=== PATIENT | female | born 1940 | race Caucasian/White ===

== ENCOUNTER → 2017-10-15 | Outpatient (CLI) | payer MEDICARE, OTHER ==
--- NOTE | 2017-10-15 13:20 | RAD ---
DATE: 10/15/2017 EXAM: MAMMO PRABHJOT SCREENING BILATERAL HISTORY: Screening Mammogram COMPARISON: This study was interpreted with the benefit of Computerized Aided Detection (CAD). The breast parenchyma shows scattered fibroglandular densities. Breast parenchyma level B. FINDINGS: Bilateral digital 2-D and 3-D tomosynthesis CC and MLO views. There is a stable upper outer left breast intramammary lymph node. No suspicious mass, calcification or architectural distortion. No significant change from prior examination IMPRESSION: No mammographic evidence of malignancy. Recommend routine screening mammogram in 12 months. BI-RADS CATEGORY: 1 NEGATIVE RECOMMENDED FOLLOW-UP: 12M 12 MONTH FOLLOW-UP PQRS compliance statement: Patient information was entered into a reminder system with a target due date for the next mammogram. Mammography is a sensitive method for finding small breast cancers, but it does not detect them all and is not a substitute for careful clinical examination. A negative mammogram does not negate a clinically suspicious finding and should not result in delay in biopsying a clinically suspicious abnormality. "Our facility is accredited by the [employer] Mammography Program."
== END | disposition home or self-care (01) ==
LOC: MAMMO 10:53
PROVIDERS: ATTEND Family Medicine
DX: Z12.31 Encounter for screening mammogram for malignant neoplasm of breast (principal)
CPT/HCPCS: 77063; 77067

== ENCOUNTER → 2018-11-12 | Outpatient (CLI) | payer MEDICARE, OTHER ==
[~2018-11-12] MED LIST: HEPARIN PF 500 UNIT/5 ML DISP.SYRIN. IV ONE
--- NOTE | 2018-11-12 12:33 | NUR ---
Accessed pt's port with good flush and blood return, assisted pt and er tech with bubble study, deaccessed pt's port and flushed with heparin flush per pt's written orders.
--- NOTE | 2018-11-12 13:07 | CARD ---
MR#: [id number] Date of Study: 11/12/2018 Ordering Physician: GARRETT RIVAS, Referring Physician: GARRETT RIVAS, Tech: Julia Mcleod NIKI APPROVED REPORT EXAM: Two-dimensional and M-mode echocardiogram with Doppler and color Doppler. Other Information Quality : Excellent INDICATION CVA/TIA Echo Enhancing Agent Agent/Amount Used: Agitated Svwmen23qU 2D DIMENSIONS Left Atrium(2D)2.7 (1.6-4.0cm)IVSd1.1 (0.7-1.1cm) Aortic Root(2D)3.1 (2.0-3.7cm)LVDd4.4 (3.9-5.9cm) LVOT Diameter2.0 (1.8-2.4cm)PWd1.0 (0.7-1.1cm) LVDs2.7 (2.5-4.0cm)FS (%) 38.7 % SV62.4 mlLVEF(%)60.0 (>50%) Aortic Valve AoV Peak Zhou.153.2cm/sAoV VTI22.2cm AO Peak GR.9.4mmHgAO Mean GR.5mmHg AI P 1/2 Qjur679gg Mitral Valve MV E Mqsdhhwp00.8cm/sMV DECEL DGHB40mx MV A Hwvbzqlb685.4cm/sE/A Ratio0.5 Tricuspid Valve TR P. Xgojiyeo904so/sRAP RBZAVMAQ9ytEg TR Peak Gr.38peSnYFXO98knYx Pulmonary Vein S1 Eykopelv736.0cm/sD2 Ylbfodun58.8cm/s LEFT VENTRICLE The left ventricle is normal size. There is normal left ventricular wall thickness. The left ventricu lar systolic function is normal. The Ejection Fraction is 60-65%. There is normal LV segmental wall m otion. RIGHT VENTRICLE The right ventricle is normal size. The right ventricular systolic function is normal. ATRIA The left atrium size is normal. The right atrium size is normal. The interatrial septum is intact wit h no evidence for an atrial septal defect or patent foramen ovale as noted on 2-D or Doppler imaging. Injection of bubbles documented an interatrial shunt. AORTIC VALVE The aortic valve is calcified but opens well. Doppler and Color Flow revealed moderate aortic regurgi tation. There is no significant aortic valvular stenosis. MITRAL VALVE The mitral valve is calcified but opens well. There is no evidence of mitral valve prolapse. There is no mitral valve stenosis. Doppler and Color Flow revealed no mitral valve regurgitation noted. TRICUSPID VALVE The tricuspid valve is normal in structure and function. Doppler and Color Flow revealed trace to mil d tricuspid regurgitation. There is mild pulmonary hypertension. The PA pressure was estimated at 38 mmHg. There is no tricuspid valve stenosis. PULMONIC VALVE The pulmonic valve is not well visualized. Doppler and Color Flow revealed mild pulmonic valvular reg urgitation. There is no pulmonic valvular stenosis. GREAT VESSELS The aortic root is normal in size. The ascending aorta is mildly dilated at 3.4 cm. The IVC is normal in size and collapses >50% with inspiration. PERICARDIAL EFFUSION There is no evidence of significant pericardial effusion. Critical Notification Critical Value: No <Conclusion> The left ventricular systolic function is normal. The Ejection Fraction is 60-65%. There is normal LV segmental wall motion. Moderate aortic regurgitation. Trace to mild tricuspid regurgitation. The PA pressure was estimated at 38 mmHg. There is no evidence of significant pericardial effusion. Signed by : Troy Dewitt, Electronically Approved : 11/12/2018 13:06:42
== END | disposition home or self-care (01) ==
LOC: ECHO 10:51
PROVIDERS: ATTEND Family Medicine
DX: I08.8 Other rheumatic multiple valve diseases (principal); I27.20 Pulmonary hypertension, unspecified
CPT/HCPCS: 93306; 96374; 96523

== ENCOUNTER → 2019-03-11 | Outpatient (CLI) | payer MEDICARE, OTHER ==
--- NOTE | 2019-03-12 10:19 | RAD ---
DATE: 03/11/2019 EXAM: MAMMO PRABHJOT SCREENING BILATERAL HISTORY: Routine screening COMPARISON: 10/15/2017 This study was interpreted with the benefit of Computerized Aided Detection (CAD). Breast Density: SCATTERED The breast parenchyma shows scattered fibroglandular densities. Breast parenchyma level B. FINDINGS: 2-D and 3-D tomosynthesis imaging was performed in CC and MLO projections. There is an unchanged small lobulated nodule in the lateral aspect of left breast compatible with an intramammary lymph node. No new or enlarging breast densities are seen. Benign type calcifications are present. No suspicious microcalcifications have developed. IMPRESSION: Stable mammograms without evidence of malignancy. BI-RADS CATEGORY: 2 BENIGN FINDING(S) RECOMMENDED FOLLOW-UP: 12M 12 MONTH FOLLOW-UP PQRS compliance statement: Patient information was entered into a reminder system with a target due date for the next mammogram. Mammography is a sensitive method for finding small breast cancers, but it does not detect them all and is not a substitute for careful clinical examination. A negative mammogram does not negate a clinically suspicious finding and should not result in delay in biopsying a clinically suspicious abnormality. "Our facility is accredited by the [employer] Mammography Program."
== END | disposition home or self-care (01) ==
LOC: MAMMO 13:08
PROVIDERS: ATTEND Family Medicine
DX: Z12.31 Encounter for screening mammogram for malignant neoplasm of breast (principal); N63.20 Unspecified lump in the left breast, unspecified quadrant; N64.89 Other specified disorders of breast
CPT/HCPCS: 77063; 77067

== ENCOUNTER → 2020-03-16 | Outpatient (CLI) | payer MEDICARE, OTHER ==
--- NOTE | 2020-03-17 12:29 | RAD ---
DATE: 03/16/2020 11:25 AM EXAM: MAMMO PRABHJOT SCREENING BILATERAL HISTORY: Screening COMPARISON: 03/11/2019, 10/15/2017 Bilateral CC and MLO views of the breasts were performed. Bilateral breast tomosynthesis was performed in CC and MLO projections. This study was interpreted with the benefit of Computerized Aided Detection (CAD). FINDINGS: Breast Density: SCATTERED The breast parenchyma shows scattered fibroglandular densities. Breast parenchyma level B No suspicious masses, microcalcifications or architectural distortion is present to suggest malignancy in either breast. The visualized axillae are unremarkable. IMPRESSION: No mammographic evidence of malignancy. BI-RADS CATEGORY: 1 NEGATIVE RECOMMENDED FOLLOW-UP: 12M 12 MONTH FOLLOW-UP Annual screening mammography is recommended, unless clinically indicated sooner based on symptoms or change in physical exam. PQRS compliance statement: Patient information was entered into a reminder system with a target due date 03/17/2021 for the next mammogram. Mammography is a sensitive method for finding small breast cancers, but it does not detect them all and is not a substitute for careful clinical examination. A negative mammogram does not negate a clinically suspicious finding and should not result in delay in biopsying a clinically suspicious abnormality. "Our facility is accredited by the [employer] Mammography [employer]."
== END | disposition home or self-care (01) ==
LOC: MAMMO 11:07
PROVIDERS: ATTEND Family Medicine
DX: Z12.31 Encounter for screening mammogram for malignant neoplasm of breast (principal)
CPT/HCPCS: 77063; 77067

== ENCOUNTER 2020-07-21 10:02 | Emergency (ER) | payer MEDICARE, OTHER ==
[~2020-07-21] VITALS: Ht 157.5 cm; Wt 49.2 kg
[2020-07-21 10:21] VITALS: BP 135/83
--- NOTE | 2020-07-21 10:29 | PHYS DOC ---
Past History Past Medical History: Other (Small cell lung cancer) Past Surgical History: Other (Left lower lobe lobectomy) Adult General Chief Complaint Chief Complaint: SHORTNESS OF BREATH HPI HPI Patient is a 79-year-old female who presents for pneumonia. Patient has History of stage IV small cell lung cancer with left lower lobe lobectomy August 2018. She is well covered in outpatient setting by her primary care physician and multiple pressure riveter operator who are at [facility]. Patient reports seeing multiple pressure riveter operator this past Sunday, 2 days ago, and was clinically diagnosed with pneumonia and given amoxicillin. She reports being on day 2 of therapy. Denies any fever, chills, headache, chest pain, worsening shortness of breath past baseline but does admit having several episodes of hypoxia with O2 saturations dipping into the upper 80s past 48 hours. She has home oxygen at home which he uses as needed, states she only uses it at night only Review of Systems Review of Systems Fourteen body systems of review of systems have been reviewed. See HPI for pertinent positives and negative responses, other cifuentes all other systems are negative, non-pertinent or non-contributory Allergies Allergies Allergies Coded Allergies Type Severity Reaction Last Updated Verified No Known Drug Allergies 07/21/20 No Physical Exam Physical Exam Constitutional: Well developed, well nourished, no acute distress, non-toxic appearance. HENT: Normocephalic, atraumatic, bilateral external ears normal, oropharynx moist, no oral exudates, nose normal. Eyes: PERRLA, EOMI, conjunctiva normal, no discharge. Neck: Normal range of motion, no tenderness, supple, no stridor. Cardiovascular: Heart rate regular, sinus rhythm, no murmurs rubs or gallops Lungs & Thorax: No respiratory distress, no accessory muscle usage, poor lung sounds globally, diminished lung sounds in left lower lobe consistent with prior lobectomy, rhonchi present bilaterally worse in left upper lobe area Abdomen: Bowel sounds normal, soft, no tenderness, no masses, no pulsatile masses. Nonsurgical abdomen, no peritoneal signs Skin: Warm, dry, no erythema, no rash. Back: No tenderness, no CVA tenderness. Extremities: No tenderness, no cyanosis, no clubbing, ROM intact, no edema. Neurologic: Alert and oriented X 3, grossly normal motor & sensory function, no focal deficits noted. Psychologic: Affect normal, judgement normal, mood normal. Current Patient Data Vital Signs Vital Signs Date Time Temp Pulse Resp B/P (MAP) Pulse Ox O2 Delivery O2 Flow Rate FiO2 07/21/20 10:21 98.8 103 20 135/83 (100) 95 Room Air EKG EKG EKG ordered and interpreted by myself at 1109 hrs. as sinus rhythm at 91 bpm, unremarkable intervals, no axis deviation, suspect Q waves present in inferior leads indicating prior inferior IA, no ischemic findings, no STEMI Radiology/Procedures Radiology/Procedures PROCEDURE: CHEST PA & LATERAL EXAM: CHEST PA LATERAL INDICATION: Reason: HX LUNG CANCER, RECENT SHOB / Spl. Instructions: / History: . TECHNIQUE: PA and lateral views COMPARISON: None FINDINGS: Tunneled right chest port with tip terminating in the proximal to mid SVC. The heart size is normal. Great vessels show aortic calcification and tortuosity. No hilar or mediastinal mass is apparent although the left hilum is obscured by volume loss and consolidation in the left upper lobe. Lungs are hyperlucent and hyperinflated in a pattern consistent with underlying COPD. There is wedge-shaped consolidation in the posterior left upper lobe extending to the left hilum. There is no pleural effusion or pneumothorax. Bones show levoscoliosis of the thoracic spine and generalized osteopenia. IMPRESSION: COPD with wedge-shaped consolidation in the posterior left upper lobe. Correlate for pneumonia. Post treatment changes for lung cancer can appear similar. Electronically signed by: Nieves Hardy MD (07/21/2020 11:09 AM) [id number] Heart Score HEART Score for Chest Pain: HEART Score for Chest Pain Response (Comments) Value History Slighlty/Non-Suspicious 0 ECG Normal 0 Age > 65 2 Risk Factors 1 or 2 Risk Factors 1 Total 3 Risk Factors: Risk Factors: DM, Current or recent (<one month) smoker, HTN, HLP, family histo ry of CAD, obesity. Risk Scores: Risk Factors: DM, Current or recent (<one month) smoker, HTN, HLP, family history of CAD, obesity. Course & Med Decision Making Course & Med Decision Making Pertinent Labs and Imaging studies reviewed. (See chart for details) Discussed most likely diagnosis of left upper lobe pneumonia in high risk patient. I discussed utility of further diagnostic work-up involving laboratory analysis; however, given that patient is hemodynamically stable and relatively asymptomatic she deferred. I feel this is appropriate given that she has good access to outpatient follow-up and is knowledgeable on return precautions that should prompt immediate medical attention. I discussed with patient's importance of continued antibiotic therapy until completion. I did advise patient to be seen within upcoming 48 hours by primary care physician and/or multiple pressure riveter operator to ensure continued symptomatic improvement. I advised her since she has oxygen at home to use when needed to keep O2 saturations in the range of 90 to 95% given her extensive history of lung cancer etc. Strict return precautions were discussed with good understanding by patient, all questions and concerns addressed prior to ER departure in stable condition Dragon Disclaimer Dragon Disclaimer This electronic medical record was generated, in whole or in part, using a voice recognition dictation system. Departure Departure: Impression: Primary Impression: Left upper lobe pneumonia Disposition: DC HOME SELF CARE/HOMELESS Condition: STABLE Referrals: GARRETT RIVAS (PCP) Patient Instructions: Pneumonia, Adult Additional Instructions: As discussed prior to ER departure, please call your primary care physician first thing after discharge to discuss need for outpatient follow-up in upcoming 7 days In addition to previously prescribed antibiotics and supplemental use of home oxygen, please continue good supportive care and pulmonary hygiene to improve your chances of best possible outcome of fighting this pneumonia If any concerning signs or symptoms occur prior to outpatient follow-up such as fever, worsening shortness of breath, or inability to maintain oxygen saturation greater than 90% with home O2, please don't hesitate to come back for repeat evaluation It was a pleasure to take care of you and I wish you a speedy recovery! SORIN GRANT DO Jul 21, 2020 10:29
--- NOTE | 2020-07-21 11:12 | EKG ---
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
--- NOTE | 2020-07-21 11:12 | RAD ---
EXAM: CHEST PA LATERAL INDICATION: Reason: HX LUNG CANCER, RECENT SHOB / Spl. Instructions: / History: . TECHNIQUE: PA and lateral views COMPARISON: None FINDINGS: Tunneled right chest port with tip terminating in the proximal to mid SVC. The heart size is normal. Great vessels show aortic calcification and tortuosity. No hilar or mediastinal mass is apparent although the left hilum is obscured by volume loss and consolidation in the left upper lobe. Lungs are hyperlucent and hyperinflated in a pattern consistent with underlying COPD. There is wedge-shaped consolidation in the posterior left upper lobe extending to the left hilum. There is no pleural effusion or pneumothorax. Bones show levoscoliosis of the thoracic spine and generalized osteopenia. IMPRESSION: COPD with wedge-shaped consolidation in the posterior left upper lobe. Correlate for pneumonia. Post treatment changes for lung cancer can appear similar. Electronically signed by: Nieves Hardy MD (07/21/2020 11:09 AM) [id number]
== END 2020-07-21 11:55 | disposition home or self-care (01) ==
LOC: ER 10:02
DX: J18.1 Lobar pneumonia, unspecified organism (principal)
CPT/HCPCS: 71046; 93005; 99283; 99284

== ENCOUNTER 2020-07-30 09:59 | Emergency (ER) | payer OTHER, MEDICARE ==
[~2020-07-30] VITALS: Ht 157.5 cm; Wt 49.0 kg
[2020-07-30 09:59] VITALS: BP 134/72
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
[2020-07-30 10:44] LABS: BASO % 0 % (0-3); EOS # 0.2 x10^3/uL (0.0-0.7); EOS % 2 % (0-3); HEMATOCRIT 32.9 % (36.0-47.0); HEMOGLOBIN 10.6 g/dL (12.0-15.5); LYMPH # 1.3 x10^3/uL (1.0-4.8); LYMPH % 11 % (24-48); MEAN CORPUSCULAR HEMOGLOBIN 30 pg (25-35); MEAN CORPUSCULAR HGB CONC 32 g/dL (31-37); MEAN CORPUSCULAR VOLUME 94 fL (79-100); MONO # 0.9 x10^3/uL (0.0-1.1); MONO % 8 % (0-9); NEUT % 80 % (31-73); PLATELET COUNT 282 x10^3/uL (140-400); RED BLOOD COUNT 3.51 x10^6/uL (3.50-5.40); RED CELL DISTRIBUTION WIDTH 13.2 % (11.5-14.5); WHITE BLOOD COUNT 12.6 x10^3/uL (4.0-11.0)
[2020-07-30 10:56] LABS: CALCIUM 10.4 mg/dL (8.5-10.1); CREATININE 1.2 mg/dL (0.6-1.0); GFR 43.6; POTASSIUM 3.6 mmol/L (3.5-5.1)
[2020-07-30 11:01] LABS: ALBUMIN 3.4 g/dL (3.4-5.0); ALBUMIN/GLOBULIN RATIO 1.3 (1.0-1.7); TOTAL BILIRUBIN 0.4 mg/dL (0.2-1.0); TOTAL PROTEIN 6.1 g/dL (6.4-8.2)
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
--- NOTE | 2020-07-30 11:47 | EKG ---
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
[2020-07-30] MEDS ORDERED: HYDR-3165 PO (12:43)
[2020-07-30] MEDS ORDERED: HYDROcodone/APAP 5/325MG 1 TAB TABLET PO ONE (13:15)
[2020-07-30] MEDS ORDERED: HEPARIN PF 500 UNIT/5 ML DISP.SYRIN. IVP ONE (13:15)
== END 2020-07-30 13:25 | disposition home or self-care (01) ==
LOC: ER 09:59
DX: I63.9 Cerebral infarction, unspecified (principal); R07.89 Other chest pain; I10 Essential (primary) hypertension; I25.2 Old myocardial infarction; Z85.9 Personal history of malignant neoplasm, unspecified; Z98.890 Other specified postprocedural states
CPT/HCPCS: 36415; 70450; 71045; 72125; 80053; 84484; 85025; 93005; 96374; 99285

== ENCOUNTER → 2021-03-25 | Outpatient (CLI) | payer MEDICARE, OTHER ==
[~2021-03-25] MED LIST changes: -HEPARIN PF 500 UNIT/5 ML DISP.SYRIN. IV ONE; +HYDR-3165 PO
--- NOTE | 2021-03-25 12:46 | RAD ---
EXAM: Bilateral digital screening mammogram with tomosynthesis. HISTORY: 80-year-old female presents for screening mammography. TECHNIQUE: Full-field digital craniocaudal and mediolateral oblique 2D and 3D tomosynthesis images of both breasts are obtained for evaluation. Computer aided detection was applied. COMPARISON: 03/16/2020 BREAST PARENCHYMAL DENSITY: Level B - Scattered fibroglandular densities. FINDINGS: There is no new suspicious mass, microcalcification or region of architectural distortion. There is a stable benign nodular density within the 1:00 position of the left breast at anterior to m id depth. There are benign calcifications within both breasts. IMPRESSION: BI-RADS Category 2: Benign finding(s). RECOMMENDATION: Annual mammography is recommended. If your mammogram demonstrates that you have dense breast tissue, which could hide abnormalities, and if you have other risk factors for breast cancer that have been identified, you might benefit from s upplemental screening tests that may be suggested by your ordering physician. Dense breast tissue, i n and of itself, is a relatively common condition. This information is not provided to cause undue c oncern, but rather to raise your awareness and to promote discussion with your physician regarding th e presence of other risk factors, in addition to dense breast tissue. A report of your mammography re sults will be sent to you and your physician. You should contact your physician if you have any ques tions or concerns regarding this report. Mammography is a sensitive method for finding small breast cancers, but it does not detect them all a nd is not a substitute for careful clinical examination. A negative mammogram does not negate a clin ically suspicious finding and should not result in delay in biopsying a clinically suspicious abnorma lity. PQRS compliance statement - Patient information was entered into a reminder system with a target due date for the next mammogram. "Our facility is accredited by the [employer] Mammography Program." Electronically signed by: Genesis Villa MD (03/25/2021 12:44 PM) [id number]
== END ==
LOC: MAMMO 11:11
PROVIDERS: ATTEND Family Medicine
DX: Z12.31 Encounter for screening mammogram for malignant neoplasm of breast (principal)
CPT/HCPCS: 77067

== ENCOUNTER → 2021-11-18 | Outpatient (CLI) | payer MEDICARE, OTHER ==
--- NOTE | 2021-11-18 15:55 | RAD ---
XR CHEST 2V 11/18/2021 Reason: COUGH Comparison: Two-view chest radiograph 07/13/2020 Technique: PA and lateral radiographs of the chest Findings: Right chest wall infusion port catheter over the SVC. Redemonstration of masslike consolidation with volume loss in the left perihilar region, some of which are likely post operative in nature. There ar e changes of emphysema. Similar calcification of the aorta. Stable cardiac silhouette. No definite fo trudi airspace opacity. No pleural effusion or pneumothorax. There is increased calcific density in the anterior chest wall, possibly the sternum. Diffuse osseous demineralization. Impression: 1. No definite acute airspace disease. 2. Perihilar masslike consolidation and postsurgical changes should be follow-up by cross-sectional i maging. 3. Increased osseous abnormality in the anterior chest wall, possibly the sternum. Attention on follo w-up cross-sectional imaging. Electronically signed by: Wagner Pittman (11/18/2021 3:53 PM) [id number]
== END ==
LOC: RAD 12:52
PROVIDERS: ATTEND Family Medicine
DX: J43.9 Emphysema, unspecified (principal); R05.9 Cough, unspecified; R06.2 Wheezing
CPT/HCPCS: 71046

== ENCOUNTER 2021-11-22 20:54 | Emergency (ER) | payer MEDICARE, OTHER ==
[~2021-11-22] VITALS: Ht 157.5 cm; Wt 49.0 kg
--- NOTE | 2021-11-22 21:14 | PHYS DOC ---
Past History Past Medical History: Cancer, Hypertension, Stroke, Other (CANDE HUERTAS APRN) Past Surgical History: Other Additional Past Surgical Histo: Lung lobectomy (CANDE HUERTAS APRN) Alcohol Use: None (CANDE HUERTAS APRN) General Adult HPI: HPI: Patient is a 81-year-old female who presents to the emergency department for altered mental status. Per EMS, PD was called for a welfare check and patient was found lying on the floor. Patient does live alone. EMS reports that a neighbor of the patient showed up and reports that she is not acting normally. Unknown last well. Per EMS patient does not have any known family. After reviewing patient's medications it was found she has a history of high cholesterol, anxiety. Patient was recently placed on prednisone, cough medication and an antibiotic on November [address] Amaya. Patient is alert but not oriented, she is not following commands. (CANDE HUERTAS APRN) Review of Systems: Review of Systems: Review of systems limited due to patient's mental status (CANDE HUERTAS APRN) Allergies: Allergies: Allergies Coded Allergies Type Severity Reaction Last Updated Verified No Known Drug Allergies 07/30/20 No (CANDE HUERTAS APRN) Physical Exam: PE: Constitutional: Well developed, well nourished, no acute distress, non-toxic appearance. [] HENT: Normocephalic, atraumatic, bilateral external ears normal, dry mucous membranes and lips, no oral exudates, nose normal. [] Eyes: PERRL, EOMI, conjunctiva normal, no discharge. [] Neck: Normal range of motion, no tenderness, supple, no stridor. [] Cardiovascular:Heart rate regular rhythm, no murmur [] Lungs & Thorax: Bilateral breath sounds clear to auscultation [] Abdomen: Bowel sounds normal, soft, no tenderness, no masses, no pulsatile masses. [] Skin: Warm, dry, no erythema, no rash. [] Back: Normal range of motion Extremities: No tenderness, no cyanosis, no clubbing, ROM intact, no edema. [] Neurologic: Alert and oriented X 3, normal motor function, normal sensory function, no focal deficits noted. [] Psychologic: Affect normal, judgement normal, mood normal. [] (CANDE HUERTAS APRN) EKG: EKG: [] EKG performed by ER staff at 947 shows sinus rhythm with rate of 86, QTc 453, no STEMI read by Dr. Barriga (CANDE HUERTAS APRN) Radiology/Procedures: Radiology/Procedures: []PROCEDURE: PORTABLE CHEST 1V Exam: Chest one view INDICATION: Altered mental status, recently treated with antibiotics and cough medication TECHNIQUE: Frontal view of the chest Comparisons: 11/18/2021 FINDINGS: Right anterior chest wall port with catheter tip at the SVC. The cardiomediastinal silhouette and pulmonary vessels are within normal limits. Spiculated masslike opacity at the left deisy which appears similar to prior study. No pleural effusion. IMPRESSION: Chronic changes without acute process identified. Electronically signed by: Jonathan Santana MD (11/22/2021 9:45 PM) LOCATED WITHIN [facility] DICTATED AND SIGNED BY: JONATHAN SANTANA MD DATE: 11/22/212141 CC: CANDE HUERTAS APRN; GARRETT RIVAS ~MTH0 0 CT HEAD AND C-SPINE WO, CT CHEST_ABDOMEN_ AND PELVIS WITHOUT CONTRAST dated 11/22/2021 9:11 PM. Comparison: 07/30/2020 Clinical Indication: Reason: Altered mental status, confusion, agitated / Spl. Instructions: / History: HISTORY OF LUNG CANCER. Technical factors: Contiguous 5 mm axial images of the head were obtained from the skullbase to the vertex. No contrast was administered. In addition, 3 mm axial images of the cervical spine were acquired with thin cut coronal and sagittal reconstructions. In addition, axial imaging of the chest abdomen pelvis performed without contrast. One or more of the following individualized dose reduction techniques were utilized for this examination: 1. Automated exposure control 2. Adjustment of the mA and/or kV according to patient size 3. Use of iterative reconstruction technique Findings head: Ventricles and sulci are mildly prominent for age. No midline shift or mass effect. There is a wedge-shaped area of low density in the right parietal- occipital region that has evolved from prior study consistent with remote infarct. There is a new wedge-shaped zone of low density in the left parietal- occipital region that extends to the cortical margin, likely acute to subacute infarct. There is also some low density at the left frontotemporal region that is new from prior exam. No hyperdense vessels are seen. No hemorrhage or extra- axial collection. Posterior fossa and brainstem unremarkable. Mild mucosal thickening of the ethmoid air cells. The visualized paranasal sinuses and mastoid air cells are otherwise clear. IMPRESSION HEAD: 1. Multifocal areas of wedge-shaped low density in the left hemisphere are new from prior study, indeterminate. This could be related to subacute infarction. Given the clinical history of malignancy, underlying metastatic disease cannot be excluded. Suggest brain MRI with and without contrast for better evaluation. 2. Moderate chronic small vessel ischemic changes with remote cortical infarct of the right parietal-occipital region. 3. No acute hemorrhage or mass. Findings cervical spine: Images were acquired from the skull base to T3. Slight retrolisthesis of C2 on C3. Slight anterolisthesis of C4 on C5. Sagittal alignment is otherwise anatomic. Vertebral body heights are maintained. No prevertebral soft tissue swelling. Posterior elements are intact. Mild to moderate endplate hypertrophic changes throughout. There is moderate disc space narrowing at C5-C6 and C6-C7 with prominent uncovertebral spurring. There is multilevel facet arthropathy. Mild central stenosis at C5-C6 with varying degrees of mild to moderate foraminal narrowing throughout. Visualized soft tissue structures are unremarkable. Limited images of lung apices are clear. IMPRESSION CERVICAL SPINE: 1. No evidence of fracture or malalignment. 2. Mild to moderate multilevel cervical spondylosis. Findings chest abdomen pelvis: Heart size is within normal limits. No pericardial effusion. Coronary artery c alcifications. Mild ectasia of the ascending thoracic aorta measuring 3.8 cm transverse. No mediastinal, hilar or axillary lymphadenopathy. Thyroid gland is somewhat heterogeneous, nonspecific. There is evidence of prior left upper lobectomy with focal area of consolidation at the left perihilar region, unchanged from prior chest x-rays. The right lung is clear. No pleural effusion or pneumothorax. Solid abdominal viscera not well evaluated in the absence of contrast material. No apparent attenuation abnormality of the liver or spleen. Pancreas, adrenal glands and gallbladder are unremarkable. There is a low-density focus at the upper pole left kidney, most consistent with cysts. Kidneys are otherwise symmetric. There is a low-density focus at the midpole right kidney measuring 1.1 cm. No stone or hydronephrosis. Unopacified GI tract normal in caliber and contour. No bowel wall thickening. No ascites or lymphadenopathy. There are a few scattered diverticula throughout colon. No paracolonic inflammatory changes. Moderate stool at the rectal vault. Images the pelvis show moderately distended urinary bladder. Uterus is surgically absent. No free fluid or pelvic lymphadenopathy. Bone window show no acute findings. There is S-shaped scoliotic curvature with m ultilevel spondylosis. Evidence of prior left hip arthroplasty. Old healed rib fractures on the left. IMPRESSION CHEST ABDOMEN PELVIS: 1. No acute abnormality of chest abdomen pelvis. 2. Status post left upper lobectomy with consolidation at the left perihilar region, similar to prior chest x-rays. This could be related known malignancy and prior surgery or radiation. Recurrent malignancy cannot be completely excluded. Recommend comparison to prior chest CTs to assess for interval change. 3. Fecal impaction at the rectal vault. 4. Coronary artery calcifications and mild ectasia of the ascending thoracic aorta. Results discussed with ER physician at approximately 10:00 PM on the day of the study. Electronically signed by: Joseph Smith MD (11/22/2021 10:06 PM) [facility] [place]CTATED AND SIGNED BY: JOSEPH SMITH MD DATE: 11/22/212144 CC: CANDE HUERTAS APRN; GARRETT RIVAS ~MTH0 0 (CANDE HUERTAS APRN) Heart Score: C/O Chest Pain: N/A Risk Factors: Risk Factors: DM, Current or recent (<one month) smoker, HTN, HLP, family history of CAD, obesity. Risk Scores: Score 0 - 3: 2.5% MACE over next 6 weeks - Discharge Home Score 4 - 6: 20.3% MACE over next 6 weeks - Admit for Clinical Observation Score 7 - 10: 72.7% MACE over next 6 weeks - Early Invasive Strategies (CANDE HUERTAS APRN) Course & Med Decision Making: Course & Med Decision Making Pertinent Labs and Imaging studies reviewed. (See chart for details) Patient presents to the emergency department for altered mental status. Patient lives alone and was found on the floor. EMS is unsure who called for welfare check. Patient does not have any family. Work-up in the ER consisted of blood work including lactic acid, troponin, blood cultures. Urinalysis and urine drug screen performed. Patient was found on the floor, unknown injury, Imaging performed of head, neck, chest abdomen and pelvis. EKG ordered. Patient treated with IV fluids as she has dry mucous membranes. Patient's daughter arrived to the emergency department. She reports that patient's baseline mental status is alert and oriented x4. She reports that she has a history of lung cancer and has had a lobectomy with mets to the brain and is 2 months cancer free. She reports that patient was last seen normal on Sunday. Chest x-ray shows no acute findings. CT scan of head shows multifocal wedge- shaped low-density in the left hemisphere new from prior study in July 2020 which may indicate a subacute infarct versus underlying metastasis and patient needs to have an MRI performed for radiologist. There is also chronic small vessel disease without any hemorrhagic or mass, CT scan of spine shows no acute findings. CT scan of abdomen and pelvis shows no acute findings. Patient's daughter Pattie states that patient receives all of her care at [facility]. I contacted [facility] transfer center and discussed the case with Dr. Greene reported that neurology needs to be consulted and not him as he is 4 acute stroke care. I am awaiting phone call from transfer [place] at this time 2230. mild leukocytosis with a wbc of 11.5. BUN 50, creatinine 1.1. Ammonia was negative. troponin 44. Potassium was 3.3, this was replaced in the emergency department. Urinalysis was positive for blood, white blood cells and bacteria, patient treated with antibiotics for UTI. Lactic acid 2.9. Rapid covid negative. I discussed patients case with supervising physician and he will assume patient care at this time 2245. (CANDE HUERTAS APRN) Course & Med Decision Making Did not see or evaluate patient. Did not discuss patient with [facility] [employer]. Generally agree with [employer]'s work-up and disposition per note. (ALBERTA BARRIGA MD) Dragon Disclaimer: Dragon Disclaimer: This electronic medical record was generated, in whole or in part, using a voice recognition dictation system. (CANDE HUERTAS APRN) Departure Departure: Referrals: GARRETT RIVAS (PCP) CANDE HUERTAS APRN Nov 22, 2021 21:14 ALBERTA BARRIGA MD Nov 22, 2021 23:09
[2021-11-22] MEDS ORDERED: IV NORMAL SALINE 1,000ML 1,000 ML IV ONE (21:30)
--- NOTE | 2021-11-22 21:48 | RAD ---
Exam: Chest one view INDICATION: Altered mental status, recently treated with antibiotics and cough medication TECHNIQUE: Frontal view of the chest Comparisons: 11/18/2021 FINDINGS: Right anterior chest wall port with catheter tip at the SVC. The cardiomediastinal silhouette and pulmonary vessels are within normal limits. Spiculated masslike opacity at the left deisy which appears similar to prior study. No pleural effusio n. IMPRESSION: Chronic changes without acute process identified. Electronically signed by: Jonathan Yanez MD (11/22/2021 9:45 PM) KEN
--- NOTE | 2021-11-22 22:09 | RAD ---
CT HEAD AND C-SPINE WO, CT CHEST_ABDOMEN_ AND PELVIS WITHOUT CONTRAST dated 11/22/2021 9:11 PM. Comparison: 07/30/2020 Clinical Indication: Reason: Altered mental status, confusion, agitated / Spl. Instructions: / Histo ry: HISTORY OF LUNG CANCER. Technical factors: Contiguous 5 mm axial images of the head were obtained from the skullbase to the v ertex. No contrast was administered. In addition, 3 mm axial images of the cervical spine were acquir ed with thin cut coronal and sagittal reconstructions. In addition, axial imaging of the chest abdome n pelvis performed without contrast. One or more of the following individualized dose reduction techniques were utilized for this examinat ion: 1. Automated exposure control 2. Adjustment of the mA and/or kV according to patient size 3. Use of iterative reconstruction technique Findings head: Ventricles and sulci are mildly prominent for age. No midline shift or mass effect. There is a wedge- shaped area of low density in the right parietal-occipital region that has evolved from prior study c onsistent with remote infarct. There is a new wedge-shaped zone of low density in the left parietal-o ccipital region that extends to the cortical margin, likely acute to subacute infarct. There is also some low density at the left frontotemporal region that is new from prior exam. No hyperdense vessels are seen. No hemorrhage or extra-axial collection. Posterior fossa and brainstem unremarkable. Mild mucosal thickening of the ethmoid air cells. The visualized paranasal sinuses and mastoid air ce lls are otherwise clear. IMPRESSION HEAD: 1. Multifocal areas of wedge-shaped low density in the left hemisphere are new from prior study, inde terminate. This could be related to subacute infarction. Given the clinical history of malignancy, un derlying metastatic disease cannot be excluded. Suggest brain MRI with and without contrast for julissa r evaluation. 2. Moderate chronic small vessel ischemic changes with remote cortical infarct of the right parietal- occipital region. 3. No acute hemorrhage or mass. Findings cervical spine: Images were acquired from the skull base to T3. Slight retrolisthesis of C2 on C3. Slight anterolisth esis of C4 on C5. Sagittal alignment is otherwise anatomic. Vertebral body heights are maintained. No prevertebral soft tissue swelling. Posterior elements are intact. Mild to moderate endplate hypertrophic changes throughout. There is moderate disc space narrowing at C5-C6 and C6-C7 with prominent uncovertebral spurring. There is multilevel facet arthropathy. Mild ce ntral stenosis at C5-C6 with varying degrees of mild to moderate foraminal narrowing throughout. Visualized soft tissue structures are unremarkable. Limited images of lung apices are clear. IMPRESSION CERVICAL SPINE: 1. No evidence of fracture or malalignment. 2. Mild to moderate multilevel cervical spondylosis. Findings chest abdomen pelvis: Heart size is within normal limits. No pericardial effusion. Coronary artery calcifications. Mild ect soraya of the ascending thoracic aorta measuring 3.8 cm transverse. No mediastinal, hilar or axillary l ymphadenopathy. Thyroid gland is somewhat heterogeneous, nonspecific. There is evidence of prior left upper lobectomy with focal area of consolidation at the left perihila r region, unchanged from prior chest x-rays. The right lung is clear. No pleural effusion or pneumoth orax. Solid abdominal viscera not well evaluated in the absence of contrast material. No apparent attenuati on abnormality of the liver or spleen. Pancreas, adrenal glands and gallbladder are unremarkable. There is a low-density focus at the upper pole left kidney, most consistent with cysts. Kidneys are o therwise symmetric. There is a low-density focus at the midpole right kidney measuring 1.1 cm. No sto ne or hydronephrosis. Unopacified GI tract normal in caliber and contour. No bowel wall thickening. No ascites or lymphaden opathy. There are a few scattered diverticula throughout colon. No paracolonic inflammatory changes. Moderate stool at the rectal vault. Images the pelvis show moderately distended urinary bladder. Uterus is surgically absent. No free flu id or pelvic lymphadenopathy. Bone window show no acute findings. There is S-shaped scoliotic curvature with multilevel spondylosis . Evidence of prior left hip arthroplasty. Old healed rib fractures on the left. IMPRESSION CHEST ABDOMEN PELVIS: 1. No acute abnormality of chest abdomen pelvis. 2. Status post left upper lobectomy with consolidation at the left perihilar region, similar to prior chest x-rays. This could be related known malignancy and prior surgery or radiation. Recurrent malig fartun cannot be completely excluded. Recommend comparison to prior chest CTs to assess for interval c hange. 3. Fecal impaction at the rectal vault. 4. Coronary artery calcifications and mild ectasia of the ascending thoracic aorta. Results discussed with ER physician at approximately 10:00 PM on the day of the study. Electronically signed by: Joseph Smith MD (11/22/2021 10:06 PM) YOLANDA
[2021-11-22 22:21] LABS: BASO % 0 % (0-3); EOS % 0 % (0-3); HEMOGLOBIN 13.2 g/dL (12.0-15.5); LYMPH % 9 % (24-48); MEAN CORPUSCULAR HEMOGLOBIN 29 pg (25-35); MEAN CORPUSCULAR HGB CONC 33 g/dL (31-37); MEAN CORPUSCULAR VOLUME 88 fL (79-100); MONO # 1.3 x10^3/uL (0.0-1.1); MONO % 12 % (0-9); NEUT % 79 % (31-73); PLATELET COUNT 304 x10^3/uL (140-400); RED BLOOD COUNT 4.57 x10^6/uL (3.50-5.40); WHITE BLOOD COUNT 11.5 x10^3/uL (4.0-11.0)
[2021-11-22 22:29] LABS: CLARITY,URINE CLEAR; COLOR,URINE YELLOW; GLUCOSE,URINE NEG (NEG); NITRITE,URINE NEG (NEG); UROBILINOGEN,URINE 0.2 mg/dL (0.2 mg/dL)
[2021-11-22 22:30] LABS: BACTERIA,URINE FEW /HPF (0-FEW); SQUAMOUS EPITHELIAL CELL,UR OCC /LPF
[2021-11-22 22:33] LABS: CALCIUM 10.8 mg/dL (8.5-10.1); CREATININE 1.1 mg/dL (0.6-1.0); GFR 47.9; POTASSIUM 3.3 mmol/L (3.5-5.1)
[2021-11-22 22:33] LABS: BARBITURATES NEG (NEG); BENZODIAZEPINES NEG (NEG); CANNABINOIDS NEG (NEG); COCAINE NEG (NEG); METHADONE NEG (NEG); OPIATES NEG (NEG); PHENCYCLIDINE NEG (NEG)
[2021-11-22 22:34] LABS: AMPHETAMINE/METHAMPHETAMINE NEG (NEG)
[2021-11-22 22:38] LABS: ALBUMIN 4.1 g/dL (3.4-5.0); ALBUMIN/GLOBULIN RATIO 1.2 (1.0-1.7); TOTAL BILIRUBIN 0.8 mg/dL (0.2-1.0); TOTAL PROTEIN 7.4 g/dL (6.4-8.2)
[2021-11-22] MEDS ORDERED: IV NORMAL SALINE 50ML 50 ML ONE (22:44)
[2021-11-22] MEDS ORDERED: cefTRIAXone SODIUM 1 GM VIAL ONE (22:44)
[2021-11-22] MEDS: POTASSIUM CHLORIDE 10MEQ 100 ML IV SCH (22:50)
[2021-11-22] MEDS ORDERED: IV RINGERS SOLUTION,LACTATED 1,000 ML IV ONE (23:00)
[2021-11-22] MEDS ORDERED: MIDAZOLAM HCL PF 5 MG/5 ML VIAL. IV ONE (23:30)
[2021-11-23] MEDS: POTASSIUM CHLORIDE 10MEQ 100 ML IV SCH (00:11)
[2021-11-23 01:00] VITALS: BP 147/63
--- NOTE | 2021-11-23 06:47 | EKG ---
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
== END 2021-11-23 01:00 | disposition short-term general hospital (02) ==
LOC: ER 20:54
DX: R41.82 Altered mental status, unspecified (principal); I10 Essential (primary) hypertension; E78.00 Pure hypercholesterolemia, unspecified; F41.9 Anxiety disorder, unspecified; Z20.822 Contact with and (suspected) exposure to COVID-19; Z86.73 Personal history of transient ischemic attack (TIA), and cerebral infarction without residual deficits
CPT/HCPCS: 36415; 70450; 71045; 71250; 72125; 74176; 80053; 80307; 81001; 82140; 82947; 83605; 83735; 84484; 85025; 87040; 87426; 93005; 96360; 96361; 96365; 96375; 99285; C9803; J0696; J2250; J3480; J7030; J7120; U0003